=== PATIENT | female | born 1975 | race Caucasian/White ===

== ENCOUNTER 2022-12-06 20:52 | Emergency (ER) | payer OTHER, SELFPAY ==
[2022-12-06] VITALS (7 sets, daily range): BP systolic 123–143; BP diastolic 69–70; PULSE 52–61; RESP 10–22; TEMP 36.5; O2SAT 96–98
--- NOTE | 2022-12-06 20:45 | RT.EKG_ITS ---
APPROVED REPORT Exam: Resting ECG Reason for Exam: palpitations Patient Location: E HR:55 bpm ECG Measurements Heart Rate 55 AXIS VT 119 P 39 QRSd 79 QRS 45 QT 413 T 45 QTc 397 Conclusion Sinus bradycardia...rate< 60
--- NOTE | 2022-12-06 21:01 | ED.GENADUL_ITS ---
Discharge Plan Disposition Patient Disposition: Home Discharge Details Clinical Impression: Premature ventricular beats, Ventricular trigeminy Primary Care Provider: None,None ED Provider: Neelima Burt Home Meds and New Rx's Prescriptions: Continued bupropion HCl 100 mg Tablet 450 mg PO DAILY budesonide-formoterol [Symbicort] 80-4.5 mcg/actuation Hfa Aerosol Inhaler 1 inh INHALATION ONCE albuterol 90 mcg/actuation Aerosol INHALATION Discharge Instructions Instructions: Heart Palpitations (ED) Additional Instructions: Is taking your pulse as outlined. If you feel like your heart is racing then figure out how fast it is going over a 60 sec interval. We talked about how to do this. Return to ED for heart rate over 120. If you are having skips then count how many you are having in 60 seconds. Do take your heartbeat for 60 seconds in this instance. If you are having multiple skips over 62nd intervals feel free to come back to the ER and we will put you on the monitor. Please stop drinking any caffeinated beverages to see if this helps. Return to ED for lightheadedness dizziness, crushing chest pain, difficulty breathing, any other concerns call your primary care doc tomorrow for a follow-up appointment for this week or next. Medical Decision Making 2124 Advised patient to try decreasing her caffeine to 0 to see if this affects the frequency of her PVCs. I also taught her to check her pulse to evaluate s kipping or racing. She has been reassured. 2209 patient was updated on her test results. Her potassium is slightly low and she was given some oral potassium to correct this. BUN is a little bit el evated and I have advised her that she needs to be drinking more fluids. I have asked her to call her primary care doc for a follow-up appointment for this coming week. She will take her heart rate and return for anything over 120 bpm. She has been reassured that the premature beats are not dangerous but if she is continuing to have this she may need to have a Holter monitor placed. Her primary care doc can arrange this. Medical Records Medical records reviewed: Yes I reviewed the patient's medical records. Lab Data Lab results reviewed: Yes I reviewed the patient's lab results. ECG Data Attestation: I personally reviewed and interpreted this ECG (s) as follows: (Sinus bradycardia at 55, normal intervals, early R wave progression) HPI General Date/Time Provider Initiated Documentation: 12/06/22 20:54 . HPI Narrative: This 47-year-old female patient presents with a chief complaint of palpitations and irregular heartbeat. The patient states that she has a history of psychiatric disease including anxiety and takes medication for this. There is been no recent change in her medicines. She does state that she is under a lot of stress right now because she is homeless. She is in a prison and social media marketing analyst working on helping her find a more permanent place to stay. The patient states in the past when she has panic attacks her heart rate is sometimes irregular and goes fast. She is usually able to use meditation to calm this down. This has not been working she decided to come to the ER. She denies chest pain or shortness of breath. She does drink caffeinated beverages. There is no pedal edema or calf pain. After the patient was placed on the monitor was able to see occasional PVCs and then trigeminy which was self- limited. I did tell the patient that she is not imagining this and that although this may be uncomfortable its not dangerous for her. She also reports some vague tingling across her upper posterior thorax. She has no other focal neurologic complaints. Related Data Home Medications Medication Instructions Recorded Confirmed albuterol 90 mcg/actuation aerosol mcg inhalation 12/06/22 inhaler budesonide-formoterol HFA 80 1 inh inhalation ONCE 12/06/22 12/06/22 mcg-4.5 mcg/actuation aerosol inhaler (Symbicort) bupropion HCl 100 mg tablet 450 mg PO DAILY 12/06/22 12/06/22 Allergies Allergy/AdvReac Type Severity Reaction Status Date / Time morphine AdvReac Unverified 12/06/22 21:46 General Stated Complaint: Palpitatns ENRIQUETA: 3 Review of Systems Constitutional Constitutional: Denies chills, Denies fever(s), Denies headache(s) and Denies weakness Eyes Eyes: Denies diplopia and Reports other (no redness) ENT Ears, Nose, Mouth, and Throat: Denies otalgia, Denies headache(s), Denies nasal congestion, Denies nasal discharge, Denies neck pain and Denies sore throat Cardiovascular Cardiovascular: Denies chest pain, Reports palpitations and Denies dyspnea Respiratory Respiratory: Denies cough and Denies dyspnea Gastrointestinal Gastrointestinal: Denies abdominal pain, Denies diarrhea, Denies nausea and Denies vomiting Genitourinary Genitourinary: Denies dysuria Musculoskeletal Musculoskeletal: Denies myalgias, Denies muscle weakness, Denies neck pain, Denies numbness and Reports other (edema) Integumentary/Breasts Skin/Breast: Denies change in pigmentation and Denies rash Neurologic Neurologic: Denies headache(s), Denies numbness, Denies weakness and Reports other (Has tingling across upper posterior thorax today) Endocrine Endocrine: Reports palpitations PFSH All Active Problems (Updated 12/06/22 @ 22:11 by Neelima Burt MD) Premature ventricular beats (Acute) Ventricular trigeminy (Acute) Social History Smoking/Tobacco Use Status: Former Tobacco Use Quit status: quit date established Smoking risk assessment performed?: Yes Alcohol Intake: never Drug use: Rarely Substance use type: marijuana Adopted: No Foster care: No Household members: children Housing: homeless Education Level: high school Do you need help understanding health information?: Never Pets and animals: Yes Pets and animals: cat(s) and dog(s) Sexually active: No Do you think of yourself as: straight/heterosexual Current gender identity: female What is your relationship status?: never How often do you talk on the phone with friends or family?: never How often do you get together with friends or relatives?: never Do you belong to any clubs or organized social groups?: no Panel score (0-1 are the most socially isolated patients): 0 What type of physical activity do you participate in: walking and other Details: cleaning Duration: 45-60 minutes/day Frequency: 3-4 times per week Simin/Mosque: None Seatbelt use: sometimes Helmet use: No Drive intox or ride w/intox milk driver: No Do you feel safe at home: Yes Do you feel safe in your relationship?: Yes Additional Social history: Currently in prison receiving help with the [employer] program. Exam Const General: no acute distress, well developed, well groomed and not in acute distress Nutritional Appearance: well nourished Orientation: alert and oriented x3 HENMT Head: normocephalic and atraumatic Ears: external ears normal Mouth: oropharynx normal and moist mucous membranes Throat: posterior oropharynx normal Eyes Conjunctivae: conjunctivae normal Neck Neck: full ROM and supple Chest Chest: normal inspection of the chest Resp Effort & Inspection: normal respiratory effort Auscultation: clear to auscultation bilaterally Cardio Rate: regular rate Rhythm: regular rhythm Heart Sounds: no murmurs and no rubs GI Inspection: normal to inspection Palpation: soft, nontender and other (non distended) Auscultation: normal bowel sounds Skin General skin exam: no rashes or lesions noted and other (pink, warm, dry) Neuro General: patient alert, patient awake and patient oriented x3 Speech: speech normal Gait: normal gait Motor: strength 5/5 throughout, no tremors and other (PRIETO) Sensory Exam: no sensory deficits noted Extrem General: normal to inspection, full ROM and pedal edema present Psych Mental Status: mental status grossly normal Speech and Movement: speech and movement normal Affect: normal affect Course Vital Signs Vital signs: Vital Signs Temperature 36.5 C 12/06/22 20:55 Pulse 61 12/06/22 20:55 Respiratory Rate 22 12/06/22 20:55 Blood Pressure 143/70 H 12/06/22 20:55 Pulse Oximetry 98 12/06/22 20:55 Temperature 36.5 C 12/06/22 20:55 Temperature Source Oral 12/06/22 20:55 Pulse 61 12/06/22 20:55 Respiratory Rate 22 12/06/22 20:55 Blood Pressure 143/70 H 12/06/22 20:55 Blood Pressure Position Sitting 12/06/22 20:55 Pulse Oximetry 98 12/06/22 20:55 Oxygen Delivery Method Room Air 12/06/22 20:55 Oxygen Flow Rate 0 12/06/22 20:55 Pain Level 0 12/06/22 20:55
[2022-12-06 22:03] LABS: Anion Gap 7.9 mmol/L (3-11); BUN 20 mg/dL (7-18); CO2 27.1 mmol/L (21.0-32.0); CREATININE 1.1 mg/dL (0.55-1.02); Calcium 8.7 mg/dL (8.5-10.1); Chloride 106 mmol/L (98-107); Estimated GFR 61.98 (mL/min/1.73m2); Glucose 160 mg/dL (74-106); Magnesium 1.9 mg/dL (1.8-2.4); Potassium 3.3 mmol/L (3.5-5.1); Sodium 141 mmol/L (136-145)
--- NOTE | 2022-12-06 22:20 | NUR.NOTE ---
Pt placed on referral list to set up primary care
[2022-12-06] MEDS: Potassium Chloride 20 MEQ TABCR PO (22:25)
--- NOTE | 2022-12-07 08:26 | NUR.NOTE ---
Nursing Note: Accessed patient chart to determine how many EKG orders were in the chart from the ED. There was an outstanding EKG in ordered status. There are no EKG's in the [employer] system that are outstanding. EKG order was deleted.
== END 2022-12-07 14:52 | disposition home or self-care (01) ==
PROVIDERS: Emergency Provider Emergency Medicine
DX: I49.3 Ventricular premature depolarization (principal); R00.8 Other abnormalities of heart beat; E87.6 Hypokalemia
CPT/HCPCS: 80048; 93005; 99283; 83735; 93010

== ENCOUNTER 2023-03-11 05:25 | Outpatient (CLI) | payer MEDICARE, MEDICAID, SELFPAY ==
[2023-03-11 10:30] LABS: Abs Immature Grans 0.01 10^3/uL (0.0-0.06); Absolute Basophil Count 0.04 10^3/uL (0.0-0.2); Absolute Eosinophil Count 0.12 10^3/uL (0.0-0.7); Absolute Lymphocyte Count 1.63 10^3/uL (1.2-3.4); Absolute Monocyte Count 0.36 10^3/uL (0.1-0.8); Absolute Neutrophil Count 2.56 10^3/uL (1.2-6.7); Basophils % 0.8; Eosinophils % 2.5; HGB 14.3 g/dL (11.2-15.7); Immature Grans % 0.2; Lymphocytes % 34.5; MCH 29.1 pg (27.0-33.0); MCHC 33.3 % (32.0-36.0); MCV 88 fL (80-95); MPV 9.7 fL (8.0-11.0); Monocytes % 7.6; Neutrophils % 54.4; Platelet Count 203 10^3/uL (130-400); RBC 4.91 10^6/uL (3.93-5.22); RDW 12.3 % (11.7-14.6); RDW-SD 39.7 fL; WBC 4.72 10^3/uL (4.4-10.8)
[2023-03-11 10:32] LABS: ESR 7 mm/hr (0-20)
[2023-03-11 12:10] LABS: ALT 16 U/L (14-59); AST 10 U/L (15-37); Albumin 3.4 g/dL (3.4-5.0); Alkaline Phosphatase 82 U/L (46-116); Anion Gap 6.4 mmol/L (3-11); BUN 20 mg/dL (7-18); Bilirubin, Total 0.6 mg/dL (0.2-1.0); CO2 29.6 mmol/L (21.0-32.0); Calcium 9.1 mg/dL (8.5-10.1); Calculated LDL 137 mg/dL (<100); Chloride 105 mmol/L (98-107); Cholesterol 242 mg/dL (<200); Estimated GFR 69.49 (mL/min/1.73m2); Folate 10.8 ng/mL (8.6-20.0); Glucose 96 mg/dL (74-106); HDL Cholesterol 83 mg/dL (40-60); Potassium 4.1 mmol/L (3.5-5.1); Sodium 141 mmol/L (136-145); Total Protein 6.5 g/dL (6.4-8.2); Triglyceride 110 mg/dL (<150); Vitamin B12 334 pg/mL (193-986)
[2023-03-11 15:32] LABS: C-Reactive Protein 0.14 mg/dL (0.0-0.3)
[2023-03-11 18:30] LABS: Rheumatoid Factor <8.6 IU/mL (<12.0)
[2023-03-12 08:40] LABS: Cyclic Citrullinated Peptide <2.5 U/mL (<5.0)
[2023-03-12 09:59] LABS: Hepatitis C Ab w Rflx HCV PCR Negative (Negative)
[2023-03-12 10:08] LABS: HIV-1/2 Ag & Ab Screen Negative (Negative)
[2023-03-15 15:47] LABS: ANA Interpretation Negative (Negative)
== END 2023-03-11 05:26 | disposition home or self-care (01) ==
LOC: LBO 05:25
PROVIDERS: PCP Nurse Practitioner Family; Visit Provider Nurse Practitioner Family
DX: E53.8 Deficiency of other specified B group vitamins (principal); Z11.4 Encounter for screening for human immunodeficiency virus [HIV]; Z13.1 Encounter for screening for diabetes mellitus; Z11.59 Encounter for screening for other viral diseases; Z13.220 Encounter for screening for lipoid disorders
CPT/HCPCS: 36415; 80053; 80061; 85652; 86200; 86803; 87389; 82607; 82746; 85025; 86038; 86140; 86431

== ENCOUNTER → 2023-04-23 00:39 | Outpatient (CLI) | payer MEDICARE, MEDICAID, SELFPAY ==
--- NOTE | 2023-04-23 11:52 | DI.MAMMO_ITS ---
Exam(s) MAMMO SCREENING EXAM: MAMMO SCREENING CLINICAL HISTORY: screening,z12.39 TECHNIQUE: Mammograms were interpreted according to the usual protocol including computer analysis w [employer] CAD system, tomosynthesis and C-view imaging. COMPARISON: No exams were available for comparison. The patient has had exams in [place] which are not available for comparison. Reports are available which indicate negative findings. FINDINGS: The breasts are composed of scattered fibroglandular densities, Breast Density category B. No suspicious masses or suspicious microcalcifications are seen. No skin thickening or abnormal axillary lymph nodes are seen. IMPRESSION: BI-RADS Category 1, Negative mammogram Yearly screening mammography is recommended. If the patient's previous exams become available, an addendum will be issued. Breast Density - Category B, scattered fibroglandular densities. A negative radiographic report should not delay biopsy if a dominant or clinically suspicious mass is present. Up to ten percent of cancers are not identified on mammography. A negative report may reinforce clinical impression. Adenosis and dense breasts may obscure an underlying neoplasm. False positive reports average 6 to 10%. Patient will receive a letter notifying them of these results.
== END ==
PROVIDERS: PCP Nurse Practitioner Family; Visit Provider Nurse Practitioner Family
DX: Z12.31 Encounter for screening mammogram for malignant neoplasm of breast (principal)
CPT/HCPCS: 77063; 77067

== ENCOUNTER 2023-05-03 16:27 | Emergency (ER) | payer MEDICARE, MEDICAID, SELFPAY ==
[2023-05-03 16:31] VITALS: BP 118/70; PULSE 70; RESP 18; TEMP 36.8; O2SAT 100
--- NOTE | 2023-05-03 16:59 | ED.GENADUL_ITS ---
Discharge Plan Disposition Patient Disposition: Home Discharge Details Clinical Impression: Closed compression fracture of L1 vertebra Primary Care Provider: Dinora Davies ED Provider: Bradford Sumner Home Meds and New Rx's Prescriptions: New ondansetron 4 mg tablet,disintegrating 4 mg PO Q8H PRN (Reason: nausea and vomiting) Qty: 10 0RF Continued cyanocobalamin (vitamin B-12) 1,000 mcg/mL solution 1,000 mcg IM QMONTH Qty: 10 1RF albuterol sulfate 90 mcg/actuation HFA aerosol inhaler 1 - 2 puff inhalation Q4H PRN (Reason: shortness of breath or wheezing) Qty: 1 3RF Rx Instructions: Dispense brand of albuterol inhaler covered by patient's insurance cyclobenzaprine 10 mg tablet 10 mg PO TID PRN (Reason: muscle spasm) Qty: 30 0RF bupropion HCl 300 mg tablet extended release 24 hr See Rx Instructions PO QAM MDD 450 mg Qty: 90 1RF Rx Instructions: Take one 150 mg pill + one 300 mg pill for a total daily dose of 450 mg daily orally every morning; bupropion HCl 150 mg tablet extended release 24 hr See Rx Instructions PO DAILY Qty: 90 1RF Rx Instructions: Take one 150 mg pill + one 300 mg pill for a total daily dose of 450 mg daily orally daily; (DME) insulin syringes (disposable) 1 mL syringe See Rx Instructions .ROUTE .MEDSUPPLY Qty: 12 0RF Rx Instructions: As directed to administer B12 injections monthly. Dispense covered brand & appropriate size for B12 injections. budesonide-formoterol [Symbicort] 80-4.5 mcg/actuation Hfa Aerosol Inhaler 1 inh INHALATION ONCE Held meloxicam 15 mg tablet 15 mg PO DAILY Qty: 30 0RF Hold Instructions: Hold while using otjz-rcn-gyyexkg ibuprofen Discharge Instructions Instructions: Vertebral Compression Fracture (ED) Additional Instructions: As discussed you may purchase an oyyh-mgg-jazhgop lumbar back brace support as this may help with your discomfort. It is very important that you do not lift any more than 5 pounds and avoid significant bending or twisting motions as this could complicate your fracture. Please hold your meloxicam if you take either xnvi-kfq-znojwxf ibuprofen as discussed. For dfgy-vae-alghhyh medication you may take 600 mg of ibuprofen with 650mg of acetaminophen every 6 hours as needed for pain. Please use the previously prescribed narcotics only as needed for severe pain. You may take the nausea medication 20 minutes before the narcotic to help with some of the nausea and side effects. If the lidocaine patch was effective you may use shtq-olb-bdyxnwk lidocaine products that are 4% strength as directed on packaging. Please follow-up with [facility] spine clinic as previously recommended Referrals: [facility] [Outside] Medical Decision Making Patient presenting to the emergency department for reevaluation of compression fracture. Patient reports yesterday that she was seen at [facility] and was diagnosed with a back problem but she was not completely sure what it is. She states that they made her very scared about her condition and due to her having a lot of pain and discomfort this triggered her anxiety. She does state that they prescribed her narcotic but when she took it it made her nauseous and not feel well. Patient has significant past medical history of PTSD, asthma, fibromyalgia and polyarthralgia. Physical exam shows a very anxious appearing female patient that is ambulatory but in moderate to severe amount of pain with walking. Patient does have lumbar tenderness mostly over the upper lumbar region and also paraspinal. DTRs and sensation is intact, normal range of motion of lower extremities but straight leg raise is positive. Based on exam I feel that patient is LOW risk for ABDOMINAL AORTIC ANEURYSM, CAUDA EQUINA SYNDROME, EPIDURAL MASS LESION, SPINAL STENOSIS, OR HERNIATED DISK CAUSING SEVERE STENOSIS, thus I consider the discharge disposition reasonable. Plan to obtain records from [facility] to review full work-up that was already performed within the last 24 hours. Pending results will give patient diclofenac cream and lidocaine patch given that patient is on meloxicam and already took [place] prior to arrival. Review of records from [facility] shows appropriate work-up along with imaging and [facility] consultation for compression fracture of L1. It was deemed that this was stable and appropriate for outpatient management by business applications specialist. Reassessed patient and she did state that the medication we gave he r did help with her pain but she was severely anxious. Upon further discussion it does not seem that adequate discharge instructions were given which caused patient to have heightened level of anxiety which she already suffers from. I spent significant amount of time discussing compression fracture along with disease process and typical healing course. Recommended that patient consider purchasing cqvu-kgq-njrtuil lumbar support brace, gave her restrictions of lifting no more than 5 pounds, no twisting motion, and light activity only. After discussion also of patient's use of hydrocodone that was already prescribed it does seem that she would benefit from some Zofran that may help with some of the typical side effects. Did also recommend patient use some uwtz-uyw-dxakgrb constipation medication as she did state some constipation from medication use. We have discussed the diagnosis and risks, and we agree with discharging home to follow-up with their primary doctor. We also discussed returning to the Emergency Department immediately if new or worsening symptoms occur. We have discussed the symptoms which are most concerning (e.g., saddle anesthesia, urinary or bowel incontinence or retention, changing or worsening pain) that necessitate immediate return. After discussion of diagnosis and plan of care patient has no further needs, questions, or concerns and states clear un derstanding to return to the emergency department for any worsening symptoms. This documentation was generated using [employer] system, please disregard any oddities of phrase or misspellings. Medical Records Medical records reviewed: Yes I reviewed the patient's medical records. Medical records narrative: Extensively reviewed [facility] records along with radiological imaging and consult note HPI General Mode of arrival: ambulatory . Date/Time Provider Initiated Documentation: 05/03/23 16:30 . Limitations to Documentation: no limitations . Information obtained by: patient and RN notes reviewed . History of Present Illness 47 year old F presents to the emergency department with the chief complaint of back pain , anxiety, described as severe, Quality is described as sharp, and is localized to the back. Patient extremity. Patient started experiencing this day(s) (1) and it has been constant. Rest improves symptom(s), Movement worsens symptoms . Patient notes no other symptoms.. Patient did receive the following treatments prior to arrival, NSAID Related Data Home Medications Medication Instructions Recorded Confirmed budesonide-formoterol HFA 80 1 inh inhalation ONCE 12/06/22 05/03/23 mcg-4.5 mcg/actuation aerosol inhaler (Symbicort) albuterol sulfate 90 mcg/actuation 1 - 2 puff inhalation Q4H PRN 01/28/23 05/03/23 aerosol inhaler shortness of breath or wheezing #1 unit bupropion HCl 150 mg 24 hr tablet, See Rx Instructions PO DAILY #90 01/28/23 05/03/23 extended release tabs bupropion HCl 300 mg 24 hr tablet, See Rx Instructions PO QAM #90 tabs 01/28/23 05/03/23 extended release cyanocobalamin (vitamin B-12) 1,000 mcg IM QMONTH #10 mL 01/28/23 05/03/23 1,000 mcg/mL injection solution cyclobenzaprine 10 mg tablet 10 mg PO TID PRN muscle spasm #30 01/28/23 05/03/23 tab-caps insulin syringes (disposable) 1 mL #12 ea 04/07/23 04/07/23 meloxicam 15 mg tablet 15 mg PO DAILY #30 tabs 04/07/23 05/03/23 ondansetron 4 mg disintegrating 4 mg PO Q8H PRN nausea and 05/03/23 tablet vomiting #10 tabs Previous Rx's Medication Instructions Recorded albuterol sulfate 90 mcg/actuation 1 - 2 puff inhalation Q4H PRN 01/28/23 aerosol inhaler shortness of breath or wheezing #1 unit bupropion HCl 150 mg 24 hr tablet, See Rx Instructions PO DAILY #90 01/28/23 extended release tabs bupropion HCl 300 mg 24 hr tablet, See Rx Instructions PO QAM #90 tabs 01/28/23 extended release cyanocobalamin (vitamin B-12) 1,000 mcg IM QMONTH #10 mL 01/28/23 1,000 mcg/mL injection solution cyclobenzaprine 10 mg tablet 10 mg PO TID PRN muscle spasm #30 01/28/23 tab-caps insulin syringes (disposable) 1 mL #12 ea 04/07/23 meloxicam 15 mg tablet 15 mg PO DAILY #30 tabs 04/07/23 ondansetron 4 mg disintegrating 4 mg PO Q8H PRN nausea and 05/03/23 tablet vomiting #10 tabs Allergies Allergy/AdvReac Type Severity Reaction Status Date / Time morphine AdvReac Upset Unverified 04/07/23 09:35 stomach trazodone AdvReac Other (See Unverified 05/03/23 16:36 Comment) General Stated Complaint: Nk/Back Pain ENRIQUETA: 3 Review of Systems Constitutional Constitutional: Denies chills and Denies fever(s) Cardiovascular Cardiovascular: Denies chest pain and Denies dyspnea on exertion Respiratory Respiratory: Denies cough and Denies dyspnea on exertion Gastrointestinal Gastrointestinal: Denies abdominal pain, Denies change in bowel habits, Denies diarrhea, Denies nausea and Denies vomiting Genitourinary Genitourinary: Denies urinary incontinence Musculoskeletal Musculoskeletal: Reports as per HPI and Reports back pain Neurologic Neurologic: Denies sensory deficit PFSH All Active Problems (Updated 05/03/23 @ 19:18 by Bradford Sumner NP) Closed compression fracture of L1 vertebra (Acute) Painful lumpy right breast (Acute) Hyperlipidemia, unspecified (Chronic) 03/2023 labs: 10-year ASCVD risk ~1.4% Chronic neck pain (Acute) Polyarthralgia (Acute) Asthma (Chronic) Vitamin B12 deficiency (Chronic) Previously on B12 injections Allergic rhinitis (Acute) Anxiety and depression (Chronic) PTSD (post-traumatic stress disorder) (Acute) Fibromyalgia (Acute) Arthritis of both ankles (Acute) Medical History Homelessness Thromboembolism Pt estimates ~2018; requesting records Tobacco use disorder QUIT ~2019 Surgical History History of ankle surgery R w/ plate & screws Status post section Status post cholecystectomy Family History Mother Rheumatoid arthritis Social History Smoking/Tobacco Use Status: Former Tobacco Use Tobacco: How many years used: 10 Smoking risk assessment performed?: Yes Alcohol Intake: never Drug use: Rarely Substance use type: marijuana Adopted: No Foster care: No Household members: children Housing: homeless Education Level: high school Do you need help understanding health information?: Never Pets and animals: Yes Pets and animals: cat(s) and dog(s) Sexually active: No Do you think of yourself as: straight/heterosexual Current gender identity: female What is your relationship status?: never How often do you talk on the phone with friends or family?: never How often do you get together with friends or relatives?: never Do you belong to any clubs or organized social groups?: no Panel score (0-1 are the most socially isolated patients): 0 What type of physical activity do you participate in: walking and other Details: cleaning Duration: 45-60 minutes/day Frequency: 3-4 times per week Simin/Sabianist: None Seatbelt use: sometimes Helmet use: No Drive intox or ride w/intox tow truck driver: No (Never) Do you feel safe at home: Yes Do you feel safe in your relationship?: Yes Additional Social history: [place] [facility] [place] [email or web address]. Exam Const General: cooperative and no acute distress Orientation: alert, awake and oriented x3 Neck Neck: normal visual inspection, full ROM and no meningeal signs Resp Effort & Inspection: normal respiratory effort Auscultation: clear to auscultation bilaterally Cardio Rate: regular rate Rhythm: regular rhythm Heart Sounds: S1 normal and S2 normal Back/Spine/Pelvis Thoracic/Lumbar Spine: pain with thoraco-lumbar ROM, paraspinal tenderness, thoraco-lumbar ROM limited, No thoracic spinal tenderness and lumbar spinal tenderness Pelvis: no pain with anterior-posterior compression, no pain with lateral compression and no buttock tenderness Neuro General: patient alert, patient awake and patient oriented x3 Motor: muscle tone normal throughout and strength 5/5 throughout DTR's: Rt Patellar: 2+ and Lt Patellar: 2+ Course Vital Signs Vital signs: Vital Signs Temperature 36.8 C 05/03/23 16:31 Pulse 70 05/03/23 16:31 Respiratory Rate 18 05/03/23 16:31 Blood Pressure 118/70 05/03/23 16:31 Pulse Oximetry 100 05/03/23 16:31 Temperature 36.8 C 05/03/23 16:31 Temperature Source Skin 05/03/23 16:31 Pulse 70 05/03/23 16:31 Respiratory Rate 18 05/03/23 16:31 Respiratory Effort Normal 05/03/23 16:50 Blood Pressure 118/70 05/03/23 16:31 Blood Pressure Position Sitting 05/03/23 16:31 Pulse Oximetry 100 05/03/23 16:31 Oxygen Delivery Method Room Air 05/03/23 16:31 Oxygen Flow Rate 0 05/03/23 16:31 Pain Level 10 05/03/23 16:31
[2023-05-03] MEDS: Diclofenac 1% Gel 100 GM TUBE TP (17:11)
[2023-05-03] MEDS: Lidocaine 5% Patch 1 PATCH TP (17:11)
[2023-05-03] MEDS: oxyCODONE 5 MG TAB PO (18:11)
[2023-05-03] MEDS: Ondansetron O.D.T. 4 MG TABEF, 3 TABS/BTL PO (19:24)
== END 2023-05-03 19:55 | disposition home or self-care (01) ==
PROVIDERS: Emergency Provider Nurse Practitioner Family; PCP Nurse Practitioner Family
DX: M54.51 Vertebrogenic low back pain (principal); S32.010A Wedge compression fracture of first lumbar vertebra, initial encounter for closed fracture
CPT/HCPCS: 99283; 99284

== ENCOUNTER → 2023-05-06 14:59 | Outpatient (CLI) | payer MEDICARE, MEDICAID, SELFPAY ==
--- NOTE | 2023-05-06 16:38 | DI.RAD_ITS ---
Exam(s) XR LUMBAR SPINE COMPLETE EXAM: XR LUMBAR SPINE COMPLETE CLINICAL HISTORY: Interval update S32.010A COMPRESSION FX. TECHNIQUE: 2D digital imaging was performed. Five views. COMPARISON: No exams were available for comparison FINDINGS: BONES: Sacralization of the L5 vertebral body. Mild compression fracture of the superior endplate L1 . No retropulsion visible. The remaining vertebral body heights are maintained. facet hypertrophy present greatest at L4 L5. DISKS: Intervertebral disc spaces are maintained. ALIGNMENT: Lumbar spinal alignment is within normal limits. SOFT TISSUE: Right upper quadrant surgical clips. Bowel gas pattern unremarkable with the exception of a large quantity of stool. IMPRESSION: Mild compression fracture of the superior endplate of L1 without visible retropulsion. DATA REPOSITORY: RADIATION DOSE DELIVERED:
== END ==
PROVIDERS: PCP Nurse Practitioner Family; Visit Provider Nurse Practitioner Adult Health
DX: S32.010D Wedge compression fracture of first lumbar vertebra, subsequent encounter for fracture with routine healing (principal); X58.XXXD Exposure to other specified factors, subsequent encounter
CPT/HCPCS: 72110

== ENCOUNTER → 2023-06-24 00:48 | Outpatient (CLI) | payer MEDICARE, MEDICAID, SELFPAY ==
--- NOTE | 2023-06-24 08:00 | DI.RAD_ITS ---
Exam(s) XR LUMBAR SPINE COMPLETE EXAM: XR LUMBAR SPINE COMPLETE CLINICAL HISTORY: Interval update,l1 VERTEBRAL FX,S32.019A. TECHNIQUE: 2D digital imaging was performed of the lumbar spine. Five images were obtained. AP, la teral, right oblique, left oblique and L5-S1 spot views were obtained. COMPARISON: CR XR LUMBAR SPINE COMPLETE from 05/06/2023 FINDINGS: BONES: Stable compression fracture of the superior endplate of L1. No new fractures identified. Dege nerative changes of the facets are seen. Small endplate osteophytes are seen at multiple levels. Th ere is again seen sacralization of the L5 vertebral body. DISKS: Disc space narrowing is seen at T12-L1. ALIGNMENT: Lumbar spinal alignment is within normal limits. No spondylolysis or spondylolisthesis. SOFT TISSUE: Surgical clips are seen in the right upper quadrant of the abdomen. IMPRESSION: Stable L1 compression fracture. DATA REPOSITORY: RADIATION DOSE DELIVERED:
== END ==
PROVIDERS: PCP Nurse Practitioner Adult Health; Visit Provider Nurse Practitioner Adult Health
DX: S32.010D Wedge compression fracture of first lumbar vertebra, subsequent encounter for fracture with routine healing (principal); X58.XXXD Exposure to other specified factors, subsequent encounter
CPT/HCPCS: 72110

== ENCOUNTER 2023-08-24 15:43 | Outpatient (CLI) | payer MEDICARE, MEDICAID, SELFPAY ==
[2023-08-24 14:57] LABS: HCT 42.9 % (36.0-46.0); HGB 14.3 g/dL (11.2-15.7); MCH 28.7 pg (27.0-33.0); MCHC 33.3 % (32.0-36.0); MCV 86 fL (80-95); MPV 9.7 fL (8.0-11.0); Platelet Count 247 10^3/uL (130-400); RBC 4.98 10^6/uL (3.93-5.22); RDW 12.4 % (11.7-14.6); RDW-SD 39.1 fL; WBC 6.21 10^3/uL (4.4-10.8)
[2023-08-24 16:00] LABS: ALT 17 U/L (14-59); AST 11 U/L (15-37); Albumin 3.5 g/dL (3.4-5.0); Alkaline Phosphatase 88 U/L (46-116); Anion Gap 7.9 mmol/L (3-11); BUN 17 mg/dL (7-18); Bilirubin, Total 0.3 mg/dL (0.2-1.0); CO2 27.1 mmol/L (21.0-32.0); Calcium 9.3 mg/dL (8.5-10.1); Calculated LDL 140 mg/dL (<100); Chloride 105 mmol/L (98-107); Cholesterol 266 mg/dL (<200); Estimated GFR 69.06 (mL/min/1.73m2); Folate 11.9 ng/mL (8.6-20.0); Glucose 104 mg/dL (74-106); HDL Cholesterol 79 mg/dL (40-60); Potassium 4.2 mmol/L (3.5-5.1); Sodium 140 mmol/L (136-145); TSH (W/Ref FT4) 4.57 uIU/mL (0.36-3.74); Triglyceride 236 mg/dL (<150); Vitamin B12 435 pg/mL (193-986)
[2023-08-25 10:36] LABS: HIV-1/2 Ag & Ab Screen Negative (Negative)
[2023-08-25 10:48] LABS: Hepatitis C Ab w Rflx HCV PCR Negative (Negative)
== END 2023-08-24 15:44 | disposition home or self-care (01) ==
LOC: LBO 15:44
PROVIDERS: PCP Nurse Practitioner Adult Health; Visit Provider Nurse Practitioner Adult Health
DX: R53.83 Other fatigue (principal); E53.8 Deficiency of other specified B group vitamins; E78.5 Hyperlipidemia, unspecified; Z11.4 Encounter for screening for human immunodeficiency virus [HIV]; Z11.59 Encounter for screening for other viral diseases
CPT/HCPCS: 36415; 80053; 80061; 85027; 86803; 87389; 82607; 82746; 84439; 84443

== ENCOUNTER → 2023-12-07 01:27 | Outpatient (CLI) | payer MEDICARE, MEDICAID, SELFPAY ==
--- NOTE | 2023-12-07 07:30 | DI.US_ITS ---
Exam(s) US LOWER EXTREMITY VENOUS RT EXAM: US LOWER EXTREMITY VENOUS RT CLINICAL HISTORY: h/o dvt,rt leg pain,m79.604,? dvt TECHNIQUE: Grayscale, color, and doppler imaging of the deep venous system of the right lower extrem ity was performed. COMPARISON: US US BREAST LIMITED ULTRASOUND from 07/28/2019 FINDINGS: There is no evidence of intraluminal thrombus and there is normal compression and augmentation demons trated within the common femoral vein, femoral vein, and popliteal vein. In the ipsilateral calf the interrogated veins also exhibit normal compression/ augmentation properti es. The ipsilateral saphenofemoral junction is patent. IMPRESSION: 1. No evidence of DVT in the right lower extremity. DATA REPOSITORY:
== END ==
PROVIDERS: PCP Nurse Practitioner Adult Health; Visit Provider Nurse Practitioner Adult Health
DX: Z86.718 Personal history of other venous thrombosis and embolism (principal); M79.604 Pain in right leg
CPT/HCPCS: 93971